=== PATIENT | male | born 1975 | race Caucasian/White ===

== ENCOUNTER 2017-10-27 15:30 | Emergency (ER) | payer BC, OTHER ==
[~2017-10-27] VITALS: Ht 182.9 cm; Wt 98.0 kg
[2017-10-27 15:51] VITALS: BP 130/76
[2017-10-27] MEDS ORDERED: KETOROLAC 30 MG/1 ML IVPush ONE (16:00)
[2017-10-27] MEDS ORDERED: KETOROLAC 30 MG/1 ML ONE (16:01)
[2017-10-27 16:23] LABS: HEMATOCRIT 46.5 % (39.2-51.8); HEMOGLOBIN 15.9 g/dL (13.7-18.0); WHITE BLOOD COUNT 10.5 x10^3/uL (3.4-10)
[2017-10-27 16:31] LABS: BLOOD UREA NITROGEN 18 mg/dL (7-18)
== END 2017-10-27 17:55 | disposition home or self-care (01) ==
LOC: ED 17:49
DX: N20.1 Calculus of ureter (principal); Z87.442 Personal history of urinary calculi
CPT/HCPCS: 36415; 74176; 80048; 82040; 85025; 96374; 99285; J1885